=== PATIENT | female | born 1985 | race African-American/Black ===

== ENCOUNTER 2022-06-01 09:49 | Outpatient (CLI) | payer BC ==
[2022-06-01 22:41] LABS: BACTERIAL VAGINOSIS DNA NEGATIVE (NEGATIVE); CANDIDA GLABRATA DNA NEGATIVE (NEGATIVE); CANDIDA GROUP DNA NEGATIVE (NEGATIVE); CANDIDA KRUSEI DNA NEGATIVE (NEGATIVE); TRICHOMONAS VAGINALIS DNA NEGATIVE (NEGATIVE)
[2022-06-01 23:23] LABS: CHLAMYDIA TRACHOMATIS DNA NEGATIVE (NEGATIVE); NEISSERIA GONORRHOEAE DNA NEGATIVE (NEGATIVE)
== END 2022-06-01 23:59 | disposition home or self-care (01) ==
LOC: LAB 09:49
PROVIDERS: ATTEND Nurse Practitioner
DX: Z11.3 Encounter for screening for infections with a predominantly sexual mode of transmission (principal); Z13.220 Encounter for screening for lipoid disorders; Z13.1 Encounter for screening for diabetes mellitus; R89.8 Other abnormal findings in specimens from other organs, systems and tissues
CPT/HCPCS: 36415; 80061; 81514; 83036; 83721; 86592; 86695; 86696; 86803; 87340; 87389; 87491; 87591; 87661

== ENCOUNTER 2022-06-01 10:15 | Outpatient (CLI) | payer BC ==
[2022-06-01 11:28] LABS: CHOL/HDL RATIO 1.6 (<4.4); CHOLESTEROL 147 mg/dL; HDL CHOLESTEROL 94 mg/dL; TRIGLYCERIDES 27 mg/dL
[2022-06-01 13:14] LABS: ESTIMATED AVERAGE GLUCOSE 111 mg/dL (70-100); HEMOGLOBIN A1c% 5.5 % (4.27-6.07)
[2022-06-02 06:10] LABS: HBsAG SCREEN Negative (Negative)
[2022-06-03 00:07] LABS: HCV AB Non Reactive (Non Reactive); HIV SCREEN 4TH GENERATION Non Reactive (Non Reactive)
[2022-06-03 02:08] LABS: RPR Non Reactive (Non Reactive)
[2022-06-03 03:10] LABS: HSV 2 IGG TYPE SPEC <0.91 index (0.00-0.90)
== END 2022-06-01 10:16 | disposition home or self-care (01) ==
LOC: LAB 10:15
PROVIDERS: ATTEND Nurse Practitioner
DX: Z13.220 Encounter for screening for lipoid disorders (principal); Z13.1 Encounter for screening for diabetes mellitus; Z11.3 Encounter for screening for infections with a predominantly sexual mode of transmission; R89.8 Other abnormal findings in specimens from other organs, systems and tissues
CPT/HCPCS: 36415; 80061; 83036; 83721; 86592; 86695; 86696; 86803; 87340; 87389

== ENCOUNTER 2022-06-22 10:33 | Outpatient (CLI) | payer BC ==
[2022-06-22 11:30] LABS: T4 (THYROXINE) 8.75 ug/dL (6.09-12.23)
[2022-06-22 11:34] LABS: THYROID STIMULATING HORMONE 0.58 uIU/mL (0.34-5.60)
== END 2022-06-22 10:34 | disposition home or self-care (01) ==
LOC: LAB 10:33
PROVIDERS: ATTEND Nurse Practitioner
DX: E78.9 Disorder of lipoprotein metabolism, unspecified (principal)
CPT/HCPCS: 36415; 84436; 84443; 84480

== ENCOUNTER 2023-03-30 08:00 | Outpatient (CLI) | payer BC ==
[2023-03-30 21:51] LABS: CHLAMYDIA TRACHOMATIS DNA NEGATIVE (NEGATIVE); NEISSERIA GONORRHOEAE DNA NEGATIVE (NEGATIVE); TRICHOMONAS VAGINALIS DNA NEGATIVE (NEGATIVE)
== END 2023-03-30 23:59 | disposition home or self-care (01) ==
LOC: LAB.WC 08:00
PROVIDERS: ATTEND Nurse Practitioner
DX: Z11.3 Encounter for screening for infections with a predominantly sexual mode of transmission (principal)
CPT/HCPCS: 87491; 87591; 87661

== ENCOUNTER 2023-04-08 17:15 | Outpatient (CLI) | payer BC ==
--- NOTE | 2023-04-09 14:36 | Ultrasound Report ---
PROCEDURE: OB 1st Trimester w/TV INDICATIONS: POSITIVE TEST OUTSIDE/PRIOR DATING DATA: Last menstrual period (LMP): 02/27/2023. LMP-based estimated date of delivery (EUGENIA): 12/04/2023. First dating scan (date and location): 04/08/2023. Estimated date of delivery (EUGENIA) from first dating scan: 11/27/2023. TECHNIQUE: Real-time scanning was performed of the fetus and maternal pelvic organs, with image documentation. Endovaginal scanning was also performed to better visualize the fetus and maternal ovaries. COMPARISON: None. FINDINGS: Intrauterine gestational sac present. Embryo: [place]-rump length measures 8 mm corresponding to 6 weeks 5 days. Heart rate: 6 weeks 5 days bpm. Other: Small subchorionic hemorrhage is present measuring 1.2 x 1.0 x 1.6 cm. Measurement variability in dating: +/- 4 weeks by LMP, +/- 7 days by mean sac diameter (use before 6 weeks gestation if crown-rump length not able to be measured), +/- 5 days by crown-rump length (6-12 weeks gestation). Maternal organs: Ovaries demonstrate to ovarian cysts largest measuring 2.7 x 2.1 x 2.9 cm. IMPRESSION: Single live intrauterine with ultrasound gestational age of 6 weeks 5 days. Small subchorionic hemorrhage. Reviewed by: Manda Alvares MD on 04/09/2023 2:34 PM PST Approved by: Manda Alvares MD on 04/09/2023 2:34 PM PST Station ID: [id number]
== END 2023-04-08 17:16 | disposition home or self-care (01) ==
LOC: DI 17:15
PROVIDERS: ATTEND Nurse Practitioner
DX: O46.8X1 Other antepartum hemorrhage, first trimester (principal); Z3A.01 Less than 8 weeks gestation of pregnancy